=== PATIENT | male | born 1985 | race Caucasian/White ===

== ENCOUNTER 2019-01-06 20:06 | Emergency (ER) | payer BC ==
[~2019-01-06] VITALS: Ht 170.2 cm; Wt 77.0 kg
[~2019-01-06 20:06] MED LIST: CIPR-193 PO; DICY10CA40 PO; GUAI5SYR2 PO; ONDA4TAB8 PO
[2019-01-06 20:10] VITALS: BP 142/79; PULSE 111; RESP 16; Ht 170.2 cm; Wt 77.0 kg
== END 2019-01-06 22:44 | disposition home or self-care (01) ==
LOC: FTE 20:06
DX: R19.7 Diarrhea, unspecified (principal); R10.84 Generalized abdominal pain
CPT/HCPCS: 99283

== ENCOUNTER 2019-01-09 18:38 | Emergency (ER) | payer BC ==
[~2019-01-09] VITALS: Ht 170.2 cm; Wt 75.6 kg
[2019-01-09 18:40] VITALS: Ht 170.2 cm; Wt 75.6 kg
[2019-01-09] MEDS ORDERED: ONDANSETRON 4 MG INJ IV STA (19:33)
[2019-01-09] MEDS ORDERED: SOD CHLORIDE 0.9% 500 ML IV STA (19:33)
[2019-01-09 22:15] VITALS: BP 121/81; PULSE 104; RESP 18
== END 2019-01-09 22:15 | disposition home or self-care (01) ==
LOC: FTE 18:38
DX: K52.9 Noninfective gastroenteritis and colitis, unspecified (principal)
CPT/HCPCS: 36415; 80053; 81003; 83690; 85025; 96374; J2405; J7040; Z7502